=== PATIENT | male | born 1980 | race Caucasian/White ===

== ENCOUNTER 2023-06-29 07:24 | Emergency (ER) | payer OTHER, SELFPAY ==
--- NOTE | 2023-06-29 07:24 | ECG_ITS ---
APPROVED REPORT Exam: Resting ECG HR:89 bpm ECG Measurements Heart Rate 89 AXES SC 170 P 63 QRSd 94 QRS 63 QT 333 T 45 QTc 380 Conclusion SINUS RHYTHM NORMAL ECG UNCONFIRMED REPORT Electronically signed by : Kamari Loza MD 06/30/2023 20:14:22
[2023-06-29 07:27] VITALS: BP 162/108; PULSE 99; RESP 20; TEMP 36.7; O2SAT 100; BMI 29.2
--- NOTE | 2023-06-29 07:31 | XR_ITS ---
FINAL REPORT TECHNIQUE: Single view chest CLINICAL HISTORY: cp, soa FINDINGS: A single view of the chest was obtained. The heart and mediastinum are within normal limits. The lungs are clear. There is no pneumothorax. Osseous structures are unremarkable. IMPRESSION: No acute cardiopulmonary process. Reviewed, Interpreted and Dictated by Bill Martinez MD Transcribed by Cher Ring Authenticated and [facility]
--- NOTE | 2023-06-29 07:37 | HMH.EDGENADL ---
Discharge Plan Disposition Patient Disposition: Home, Self-Care Chief Complaint: Chest Pain Referrals Follow up/Referrals: Provider,Referral, MD [Primary Care Provider] - See instructions Activity Restrictions/Add. Instructions Additional Instructions/Restrictions: Continue following with your family doctor regarding thyroid medications, have levels drawn every 4 to 6 weeks until TSH and T4 level out. They were normal today, but that does not mean they will be abnormal in a couple of weeks. Also talked your family doctor about starting antianxiety SSRI after figuring out thyroid medications. Call your family doctor to establish care for this visit to the emergency department and schedule follow-up within 48 hours to ensure improvement. If you have any worsening of your condition or any other concerning signs or symptoms, return to the emergency department or your primary care doctor for further evaluation. Clinical Impressions Clinical Impression: Chest pain, Anxiety Discharge ED Provider: Roby Bowden General Adult HPI General Chief complaint: Chest Pain Stated complaint: chest pain Time Seen by Provider: 06/29/23 07:25 Mode of Arrival: Ambulatory Source of Information: Patient Limitations: No Limitations Description of Symptoms (Recalled from ER Triage Doc. by RN): Patient states he woke up at around 3 am with pain in the center of his back, chest pain and states it feels like his stomach is on fire. 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 Patient states that he has had 4-5 episodes of chest pain in the past month after trying to restart his thyroid medication and get thyroid levels out. Today, patient states that he was on a hunting trip. Chest pain substernal and radiates to back. No neurologic deficits. Patient states he has not felt short of breath, nauseous, vomiting, or diaphoretic. He states that he recently changed his diet to being more along the lines of paleo avoiding most foods and relying heavily on vegetables and more natural proteins, but during this trip, they have been eating bad food, salty food, among others and he has been having significant reflux. States that his stomach is burning, nothing has made it better or worse. Related Data Allergies Allergy/AdvReac Type Severity Reaction Status Date / Time No Known Allergies Allergy Verified 06/29/23 07:31 [facility] Disclaimer: The information contained in this section may have been updated after the patient was seen, as this information can be updated by other users. Social History Smoking Status: Unknown if ever smoked alcohol intake: never current occupational status: employed Travel in the last 8 weeks: None ROS Obtained: Yes All systems reviewed & no additional complaints except as documented Physical Exam General General appearance: alert, in no apparent distress and anxious (tearful) Head Head exam: atraumatic and normocephalic Eye Eye exam: Present normal appearance, PERRL and EOMI ENT ENT exam: Present mucous membranes moist Neck Neck exam: Present normal inspection, full ROM and trachea midline Respiratory Respiratory exam: Present normal lung sounds bilaterally; Absent respiratory distress, wheezes, stridor, accessory muscle use or prolonged expiratory phase Cardiovascular Cardiovascular exam: Present normal rhythm, tachycardia and normal heart sounds Abdominal Exam Abdominal exam: Present soft; Absent distention, tenderness, guarding, rebound, rigidity or normal bowel sounds Extremities Exam Extremities exam: Absent edema Neurological Exam Neurological exam: Present alert, oriented X3, CN II-XII intact and normal gait; Absent motor sensory deficit Skin Skin exam: Present warm and dry; Absent diaphoresis or erythema Medical Decision Making Medic
--- NOTE | 2023-06-29 07:40 | PC.NURSE ---
rad at bs
[2023-06-29 07:54] LABS: Basophils % 0.6 % (0.1-2.0); Eosinophils # 0.2 K/mm3 (0.0-0.4); Eosinophils % 3.7 % (0.1-12.0); Hematocrit 45.3 % (42.0-52.0); Hemoglobin 15.3 g/dL (14.1-18.0); Lymphocytes # 1.7 K/mm3 (0.7-4.5); Lymphocytes % 30.1 % (10-50); Mean Corpuscular HGB Conc 33.8 g/dL (31.8-35.4); Mean Corpuscular Hemoglobin 28.1 pg (27.0-31.2); Mean Platelet Volume 9.1 fl (7.4-10.4); Monocytes # 0.4 K/mm3 (0.1-1.0); Monocytes % 6.2 % (1.7-9.3); Neutrophils # 3.4 K/mm3 (1.8-7.8); Neutrophils % 59.3 % (37.0-80.0); Platelet Count 204 K/mm3 (142-424); Red Blood Count 5.46 M/mm3 (4.60-6.20); Red Cell Distribution Width 13.2 % (11.5-17.5); White Blood Count 5.7 K/mm3 (4.8-10.8)
[2023-06-29 08:02] LABS: Alanine Aminotransferase 95 U/L (12-78); Albumin Level 4.5 g/dl (3.5-5.0); Albumin/Globulin Ratio 1.4 (1.1-1.8); Alkaline Phosphatase 42 U/L (38-126); Aspartate Amino Transferase 56 U/L (17-59); Bilirubin,Total 0.3 mg/dl (0.2-1.3); Blood Urea Nitrogen 19 mg/dl (9-20); Calcium 9.4 mg/dl (8.4-10.2); Carbon Dioxide 20 mmol/L (22.0-30.0); Chloride 108 mmol/L (98-107); Creatinine Clearance Estimated 108 mL/min (50-200); Estimated Glomerular Filt Rate 66 ml/min (>60); GFR (African American) 80 ML/MIN (>60); Globulin 3.3 g/dL (1.3-3.2); Glucose 119 mg/dl (74-100); Lipase 120 U/L (23-300); Sodium 141 mmol/L (136-145); Total Protein,Serum 7.8 g/dl (6.3-8.2)
[2023-06-29 08:18] LABS: Troponin I < 0.01 ng/ml (0.00-0.034)
[2023-06-29 08:20] LABS: T4 (Thyroxine) 10.9 ug/dl (5.53-11.0)
[2023-06-29 08:32] LABS: Thyroid Stimulating Hormone 3.95 uIU/mL (0.465-4.68)
[2023-06-29 09:54] VITALS: BP 126/80; PULSE 67; RESP 18; TEMP 36.7; O2SAT 100
== END 2023-06-29 09:55 | disposition home or self-care (01) ==
PROVIDERS: Emergency Provider Emergency Medicine
DX: R07.9 Chest pain, unspecified (principal); F41.9 Anxiety disorder, unspecified
CPT/HCPCS: 71045; 80053; 83690; 84436; 84443; 84484; 85025; 93005; 96360; 99285